=== PATIENT | male | born 1955 | race Caucasian/White ===

== ENCOUNTER 2019-07-09 22:11 | Emergency (ER) | payer BC ==
[~2019-07-09] VITALS: Ht 177.8 cm; Wt 81.6 kg
--- NOTE | 2019-07-09 22:45 | PHYS DOC ---
Past Medical History Past Medical History: No Pertinent History Adult General Chief Complaint Chief Complaint: LOWEREXTREMITY INJURY HPI HPI Patient is a 64 year old male who presents with Left great toe pain. States a da fell on to his left great toe, was wearing tennis shoes. No bleeding. Bruising and pain. Irons [employer], no change in pain. No other injury or trauma Review of Systems Review of Systems Constitutional: Denies fever or chills [] Eyes: Denies change in visual acuity, redness, or eye pain [] HENT: Denies nasal congestion or sore throat [] Respiratory: Denies cough or shortness of breath [] Cardiovascular: No additional information not addressed in HPI [] Musculoskeletal: Denies back pain . c/o left great toe pain Integument: Denies rash or skin lesions [] Neurologic: Denies headache, focal weakness or sensory changes [] Endocrine: Denies polyuria or polydipsia [] All other systems were reviewed and found to be within normal limits, except as documented in this note. Current Medications Current Medications Current Medications Medications (Trade) Dose Ordered Sig/Demarco Start Time Stop Time Status Last Admin Dose Admin Acetaminophen/ Hydrocodone Bitart (Lortab 5/325) 1 tab 1X ONCE 07/09/19 23:30 07/09/19 23:31 DC 07/10/19 00:04 1 TAB Morphine Sulfate (Morphine Sulfate) 8 mg 1X ONCE 07/09/19 23:00 07/09/19 23:17 DC Ondansetron HCl (Zofran Odt) 4 mg 1X ONCE 07/09/19 23:00 07/09/19 23:04 DC 07/09/19 23:12 4 MG Allergies Allergies Allergies Coded Allergies Type Severity Reaction Last Updated Verified diazepam Allergy Unknown HALLUCINATIONS 07/09/19 Yes Physical Exam Physical Exam Constitutional: Well developed, well nourished, no acute distress, non-toxic appearance. [] HENT: Normocephalic, atraumatic, bilateral external ears normal, oropharynx moist, no oral exudates, nose normal. [] Eyes: PERRLA, EOMI, conjunctiva normal, no discharge. [] Neck: Normal range of motion, no tenderness, supple, no stridor. [] Cardiovascular:Heart rate regular rhythm, no murmur [] Lungs & Thorax: Bilateral breath sounds clear to auscultation [] Skin: Warm, dry, no erythema, no rash. [] Extremities: no cyanosis, no clubbing. Left anterior great toe mild swelling, moderate bruising, no deformity, no nail injury. Intact pulses and distal cap refill, limited flexion due to pain Neurologic: Alert and oriented X 3, normal motor function, normal sensory function, no focal deficits noted. [] Psychologic: Affect normal, judgement normal, mood normal. [] Current Patient Data Vital Signs Vital Signs Date Time Temp Pulse Resp B/P (MAP) Pulse Ox O2 Delivery O2 Flow Rate FiO2 07/10/19 00:19 50 16 144/62 (89) 98 Room Air 07/09/19 22:30 98.0 98.0 EKG EKG [] Radiology/Procedures Radiology/Procedures Xray left foot: fracture of the distal left 1st toe Post op shoe and crutches[] Impressions: Left great toe fracture, closed Course & Med Decision Making Course & Med Decision Making Pertinent Labs and Imaging studies reviewed. (See chart for details) []Left great toe injury Irons [employer], states pain is not controlled Crackers and additional Irons PO Xray left foot: 1st toe distal fracture Post op shoe and crutches, Irons, [facility] for follow up, educated on home care fu and reasons to return to the ER Chidi Disclaimer Chidi Disclaimer This electronic medical record was generated, in whole or in part, using a voice recognition dictation system. Departure Departure Impression: Primary Impression: Toe fracture, left Disposition: 01 HOME, SELF-CARE Condition: IMPROVED Referrals: [facility] Patient Instructions: Toe Fracture, [id number] Additional Instructions: Rest ice and elevate Motrin and Tylenol for pain, Irons as prescribed Wear the boot and use crutches Call Ortho, return for any concerns or worsening symptoms ARIANNE WHALEY APRN Jul 09, 2019 22:45
[2019-07-09] MEDS ORDERED: ONDANSETRON ODT 4 MG TAB.RAPDIS. PO ONE (23:00)
[2019-07-09] MEDS ORDERED: MORPHINE SULFATE 10 MG/ML VIAL. IM ONE (23:00)
[2019-07-09] MEDS ORDERED: HYDROcodone/APAP 5/325MG 1 TAB TABLET PO ONE (23:30)
[2019-07-10 01:09] VITALS: BP 142/74
--- NOTE | 2019-07-10 08:12 | RAD ---
Exam performed:Left foot 3 views. Indication: Trauma Date of Service: 07/09/2019 . Comparison: None available Three views left foot findings: Normal alignment is preserved. There is no acute fracture or dislocation. No obvious soft tissue swelling or foreign bodies identified. Impression: 1. No definite abnormality seen . Electronically signed by: Fany Patel MD (07/10/2019 8:10 AM) [facility]
== END 2019-07-10 01:09 | disposition home or self-care (01) ==
LOC: ER 22:11
DX: S92.912A Unspecified fracture of left toe(s), initial encounter for closed fracture (principal); Z88.8 Allergy status to other drugs, medicaments and biological substances; W18.39XA Other fall on same level, initial encounter; Y93.89 Activity, other specified; Y92.89 Other specified places as the place of occurrence of the external cause; Y99.8 Other external cause status
CPT/HCPCS: 73630; 99284; Q0162